=== PATIENT | male | born 1960 | race Caucasian/White ===

== ENCOUNTER 2021-03-05 14:45 | Emergency (ER) | payer MEDICARE ==
[~2021-03-05 14:45] MED LIST: PREDNISONE20 MG PO; VENTOLIN HFA 66.7 GM INH
== END 2021-03-05 15:51 | disposition home or self-care (01) ==
LOC: ER1 14:45
DX: U07.1 COVID-19 (principal)
CPT/HCPCS: 96372; 99283; J1885; U0003

== ENCOUNTER 2021-03-10 16:38 | Emergency (ER) | payer MEDICARE ==
[~2021-03-10] VITALS: Ht 180.3 cm; Wt 59.0 kg
[2021-03-10 18:11] LABS: HEMOGLOBIN 14.4 gm/dl (14.0-17.5); RED BLOOD COUNT 4.18 M/UL (4.20-5.50); WHITE BLOOD COUNT 6.2 K/UL (4.5-11.0)
[2021-03-10 18:46] LABS: BUN/CREATININE RATIO 30 (0-10)
[2021-03-10 19:44] LABS: BORDETELLA PARAPERTUSSIS Not Detected (Not Detectd); BORDETELLA PERTUSSIS Not Detected (Not Detectd); CHLAMYDIA PNEUMONIAE Not Detected (Not Detectd); CORONAVIRUS HKU1 Not Detected (Not Detectd); CORONAVIRUS NL63 Not Detected (Not Detectd); CORONAVIRUS OC43 Not Detected (Not Detectd); CORONOAVIRUS 229E Not Detected (Not Detectd); HUMAN METAPNEUMOVIRUS Not Detected (Not Detectd); HUMAN RHINOVIRUS/ENTEROVIRUS Not Detected (Not Detectd); INFLUENZA A Not Detected (Not Detectd); INFLUENZA B Not Detected (Not Detectd); MYCOPLASMA PNEUMONIAE Not Detected (Not Detectd); PARAINFLUENZA VIRUS 1 Not Detected (Not Detectd); PARAINFLUENZA VIRUS 2 Not Detected (Not Detectd); PARAINFLUENZA VIRUS 3 Not Detected (Not Detectd); PARAINFLUENZA VIRUS 4 Not Detected (Not Detectd); RESPIRATORY SYNCYTIAL VIRUS Not Detected (Not Detectd)
[2021-03-10] MEDS ORDERED: TESSALON PERLE100 MG PO (20:46)
[2021-03-10] MEDS ORDERED: PROVENTIL HFA6.7 GM INH (20:46)
[2021-03-10 21:02] LABS: SARS-CoV-2 DETECTED (Not Detectd)
== END 2021-03-10 21:55 | disposition home or self-care (01) ==
LOC: ER1 16:38
PROVIDERS: Physician Assistant
DX: U07.1 COVID-19 (principal); Z23 Encounter for immunization; F17.210 Nicotine dependence, cigarettes, uncomplicated
CPT/HCPCS: 71045; 80053; 81001; 82550; 82553; 83874; 84484; 85025; 87633; 93005; 99285; J7030; M0243; U0002